=== PATIENT | female | born 1945 | race Caucasian/White ===

== ENCOUNTER 2018-05-25 12:53 | Observation (INO) | payer MEDICARE, OTHER ==
[2018-05-25 13:12] LABS: BASOPHILS % (AUTO) 0.7 %; EOSINOPHILS # (AUTO) 0.1 10^3/uL (0.0-0.7); EOSINOPHILS % (AUTO) 2.3 %; HGB - HEMOGLOBIN 12.5 g/dL (12.0-16.0); LYMPHOCYTES # (AUTO) 2.3 10^3/uL (1.5-3.5); LYMPHOCYTES % (AUTO) 37.5 %; MEAN CORPUSCULAR HEMOGLOBIN 32.8 pg (27.0-31.0); MEAN CORPUSCULAR HGB CONC 33.5 g/dL (32.0-36.0); MEAN CORPUSCULAR VOLUME 97.9 fL (81.0-99.0); MEAN PLATELET VOLUME 9.1 fL (7.9-10.8); MONOCYTES # (AUTO) 0.5 10^3/uL (0.0-1.0); MONOCYTES % (AUTO) 8.8 %; NEUTROPHILS # (AUTO) 3.1 10^3/uL (1.5-6.6); NEUTROPHILS % (AUTO) 50.7 %; PLT - PLATELET COUNT 237 10^3/uL (130-450); RED BLOOD COUNT 3.82 10^6/uL (4.20-5.40); RED CELL DISTRIBUTION WIDTH 13.3 % (12.0-15.0); WHITE BLOOD COUNT 6.2 x10^3/uL (4.8-10.8)
[2018-05-25] MEDS ORDERED: ONDANSETRON 4 MG/2 ML VIAL IVP STA (13:12)
[2018-05-25] MEDS ORDERED: SODIUM CHLORIDE 0.9% 1,000 ML IV ONE (13:12)
[2018-05-25 13:25] LABS: ALBUMIN/GLOBULIN RATIO 1.1 (1.0-2.2); BILIRUBIN,TOTAL 1.5 mg/dL (0.2-1.0); CALCIUM 9.6 mg/dL (8.5-10.3); CREATININE 1.2 mg/dL (0.4-1.0); MAGNESIUM 1.8 mg/dL (1.7-2.8); TOTAL PROTEIN 7.5 g/dL (6.7-8.2)
--- NOTE | 2018-05-25 13:26 | ED Physician Documentation ---
History of Present Illness - Stated complaint Stated Complaint: SYNCOPE - Chief complaint Chief Complaint: Neuro - History obtained from History obtained from: Patient - Additonal information Additional information: 72-year-old female was brought to the emergency department after a syncopal episode which occurred today just prior to arrival. The patient was A passenger and began to feel dizzy and nauseous. The patient has been pulled over and the patient began to vomit and her dizziness became worse. The patient then opened the door to the car and had a syncopal episode and struck her head upon falling to the ground. Currently, the patient reports feeling very dizzy and nauseous. The patient denies chest pain, palpitations, recent dyspnea on exertion or focal neurologic changes. No specific triggering factors. No relieving factors. Symptoms are described as moderate. No other associated symptoms. Review of Systems Constitutional: reports: Fatigue. denies: Fever, Chills Eyes: denies: Loss of vision Ears: denies: Ear pain Nose: denies: Congestion Cardiac: denies: Chest pain / pressure, Palpitations Respiratory: denies: Dyspnea GI: reports: Nausea, Vomiting. denies: Abdominal Pain : denies: Dysuria Skin: denies: Rash Musculoskeletal: denies: Neck pain Neurologic: reports: Generalized weakness, Syncope, Head injury. denies: Focal weakness, Numbness, Difficulty speaking, Seizure, Confused, Altered mental status, Unresponsive Immunocompromised: denies: Chemotherapy PD PAST MEDICAL HISTORY - Present Medications Home Medications: Ambulatory Orders Medication Instructions Recorded Confirmed Levothyroxine Sodium [Tirosint] 50 mcg PO QDAC 05/25/18 05/25/18 - Allergies Allergies/Adverse Reactions: Allergies Allergy/AdvReac Type Severity Reaction Status Date / Time hydrocodone Allergy Unknown Verified 05/25/18 13:04 Penicillins Allergy Unknown Verified 05/25/18 13:05 PD ED PE NORMAL - General General: Alert and oriented X 3, No acute distress - HEENT HEENT: Atraumatic, PERRL, EOMI, Ears normal - Neck Neck: Supple, no meningeal sign - Cardiac Cardiac: RRR - Respiratory Respiratory: No respiratory distress, Clear bilaterally - Abdomen Abdomen: Normal bowel sounds, Non tender - Derm Derm: Normal color, No rash - Extremities Extremities: No deformity, Normal ROM s pain - Neuro Neuro: Alert and oriented X 3, tank pumper panelboard 2-12 intact, No motor deficit, No sensory deficit, Normal speech Eye Opening: Spontaneous Motor: Obeys Commands Verbal: Oriented GCS Score: 15 - Psych Psych: Normal mood Results - Vitals Vitals: Vital Signs - 24 hr 05/25/18 05/25/18 05/25/18 12:58 13:54 15:51 Temperature 35.6 C L 36.0 C L Heart Rate 63 58 L 58 L Respiratory 6 L 6 L 11 L Rate Blood Pressure 110/54 L 120/65 154/78 H O2 Saturation 0 L 97 100 Oxygen O2 Source Room air - EKG (time done) 13: 01 Rate: Rate (enter#) Rhythm: NSR Intervals: Normal [place], QRS normal Ischemia: Normal ST segments Compare to prior EKG: Old EKG unavailable - Labs Labs: Laboratory Tests 05/25/18 05/25/18 05/25/18 13:04 13:04 13:04 WBC 6.2 RBC 3.82 L Hgb 12.5 Hct 37.4 MCV 97.9 MCH 32.8 H MCHC 33.5 RDW 13.3 Plt Count 237 MPV 9.1 Neut # (Auto) 3.1 Lymph # (Auto) 2.3 Alcorn # (Auto) 0.5 Eos # (Auto) 0.1 Baso # (Auto) 0.0 Absolute Nucleated RBC 0.00 Nucleated RBC % 0.1 Sodium 137 Potassium 3.6 Chloride 103 Carbon Dioxide 25 Anion Gap 9.0 BUN 20 Creatinine 1.2 H Estimated GFR (MDRD) 44 L Glucose 116 H Calcium 9.6 Magnesium 1.8 Total Bilirubin 1.5 H AST 25 ALT 18 Alkaline Phosphatase 61 Troponin I < 0.04 B-Natriuretic Peptide Total Protein 7.5 Albumin 4.0 Globulin 3.5 Albumin/Globulin Ratio 1.1 Lipase 53 H Urine Color Urine Clarity Urine pH Ur Specific [place] Urine Protein Urine Glucose (UA) Urine Ketones Urine Occult Blood Urine Nitrite Urine Bilirubin Urine Urobilinogen Ur Leukocyte Esterase Urine RBC Urine WBC Ur Squamous Epith Cells Amorphous Sediment Urine Bacteria Ur Microscopic Review Urine Culture Comments 05/25/18 05/25/18 13:04 16:30 WBC RBC Hgb Hct MCV MCH MCHC RDW Plt Count MPV Neut # (Auto) Lymph # (Auto) Alcorn # (Auto) Eos # (Auto) Baso # (Auto) Absolute Nucleated RBC Nucleated RBC % Sodium Potassium Chloride Carbon Dioxide Anion Gap BUN Creatinine Estimated GFR (MDRD) Glucose Calcium Magnesium Total Bilirubin AST ALT Alkaline Phosphatase Troponin I B-Natriuretic Peptide 19 Total Protein Albumin Globulin Albumin/Globulin Ratio Lipase Urine Color YELLOW Urine Clarity SL. CLOUDY Urine pH 6.0 Ur Specific [place] 1.010 Urine Protein NEGATIVE Urine Glucose (UA) NEGATIVE Urine Ketones NEGATIVE Urine Occult Blood SMALL H Urine Nitrite NEGATIVE Urine Bilirubin NEGATIVE Urine Urobilinogen 0.2 (NORMAL) Ur Leukocyte Esterase NEGATIVE Urine RBC 0-5 Urine WBC 0-3 Ur Squamous Epith Cells RARE Squamous Amorphous Sediment Moderate Urine Bacteria Rare Ur Microscopic Review INDICATED Urine Culture Comments NOT INDICATED PD MEDICAL DECISION MAKING - ED course ED course: The patient will require admission to the hospital for further workup of her syncopal episode. The findings and plan were discussed with the patient and family who understand and agree to the plan. The case was discussed with the hospitalist who accepts the patient onto her service - Sepsis Event Vital Signs: Vital Signs - 24 hr 05/25/18 05/25/18 05/25/18 12:58 13:54 15:51 Temperature 35.6 C L 36.0 C L Heart Rate 63 58 L 58 L Respiratory 6 L 6 L 11 L Rate Blood Pressure 110/54 L 120/65 154/78 H O2 Saturation 0 L 97 100 Oxygen O2 Source Room air Departure - Departure Disposition: ED Place in Observation Clinical Impression: Renal insufficiency, mild Syncope Qualifiers: Syncope type: unspecified Qualified Code(s): R55 - Syncope and collapse Closed head injury Qualifiers: Encounter type: initial encounter Qualified Code(s): S09.90XA - Unspecified injury of head, initial encounter Condition: Good Discharge Date/Time: 05/25/18 18:02
--- NOTE | 2018-05-25 14:53 | CT Report ---
Procedure Date: 05/25/2018 Accession Number: [id number] / [id number] Procedure: CT - Head W/O CPT Code: FULL RESULT: EXAM: CT HEAD EXAM DATE: 05/25/2018 02:23 PM. CLINICAL HISTORY: Head injury after a syncopal episode. COMPARISON: None. TECHNIQUE: Multiaxial CT images were obtained from the foramen magnum to the vertex. Reformats: Coronal. IV contrast: None. In accordance with CT protocol optimization, one or more of the following dose reduction techniques were utilized for this exam: automated exposure control, adjustment of mA and/or KV based on patient size, or use of iterative reconstructive technique. FINDINGS: Parenchyma: No intraparenchymal hemorrhage. No evidence of mass, midline shift, or CT findings of acute infarction. Gleason-white differentiation is distinct. Diffuse chronic microangiopathic white matter changes are evident. Extraaxial Spaces: Normal for age. No subdural or epidural collections identified. Ventricles: The ventricles and cortical sulci are enlarged, consistent with age-related tissue loss. Sinuses and orbits: Imaged paranasal sinuses, orbits, and mastoids show no significant abnormality. Bones: No evidence of fracture or calvarial defect. Other: None. IMPRESSION: Generalized age-related cortical atrophic changes without evidence of acute intracranial abnormality. RADIA
--- NOTE | 2018-05-25 15:04 | XRAY Report ---
Procedure Date: 05/25/2018 Accession Number: [id number] / [id number] Procedure: XR - Chest 2 View X-Ray CPT Code: 71722 FULL RESULT: EXAM: CHEST RADIOGRAPHY. EXAM DATE: 05/25/2018 02:30 PM. CLINICAL HISTORY: Chest pain. COMPARISON: None. TECHNIQUE: 2 views. FINDINGS: Lungs/Pleura: No focal opacities evident. No pleural effusion. No pneumothorax. Normal volumes. Mediastinum: Heart and mediastinal contours are unremarkable. Other: Cervical spine fusion. IMPRESSION: Normal 2-view chest radiography. RADIA
[2018-05-25 16:34] LABS: BILIRUBIN,URINE NEGATIVE (NEGATIVE); CLARITY,URINE SL. CLOUDY (CLEAR); GLUCOSE, URINE (UA) NEGATIVE (NEGATIVE); KETONES,URINE (UA) NEGATIVE (NEGATIVE); LEUKOCYTE ESTERASE, URINE NEGATIVE (NEGATIVE); NITRITE,URINE NEGATIVE (NEGATIVE); OCCULT BLOOD,URINE SMALL (NEGATIVE); PROTEIN,URINE NEGATIVE (NEGATIVE); UROBILINOGEN,URINE 0.2 (NORMAL) E.U./dL (NORMAL)
[2018-05-25] MEDS ORDERED: SODIUM CHLORIDE FLUSH 0.9% 10 ML SYRINGE IVP PRN (16:42)
[2018-05-25] MEDS ORDERED: ACETAMINOPHEN 325 MG TABLET PO PRN (16:42)
[2018-05-25] MEDS ORDERED: PROCHLORPERAZINE 10 MG/2 ML VIAL IVP PRN (16:42)
[2018-05-25 16:48] LABS: AMORPHOUS SEDIMENT,UR Moderate /LPF; BACTERIA,URINE Rare /HPF (None Seen); RBC,URINE 0-5 /HPF (0-5); SQUAMOUS EPITHELIAL CELL,UR RARE Squamous (<= Few)
[2018-05-25] MEDS ORDERED: SODIUM CHLORIDE 0.9% 1,000 ML IV SCH (17:00)
[2018-05-25] MEDS: SODIUM CHLORIDE FLUSH 0.9% 10 ML SYRINGE IVP SCH (17:57)
[2018-05-25] MEDS ORDERED: LEVOTHYROXINE SODIUM 50 MCG PO SCH (21:00)
--- NOTE | 2018-05-25 22:11 | CT Report ---
Procedure Date: 05/25/2018 Accession Number: [id number] / [id number] Procedure: CT - Abdomen/Pelvis W/O CPT Code: FULL RESULT: EXAM: CT ABDOMEN AND PELVIS EXAM DATE: 05/25/2018 08:14 PM. CLINICAL HISTORY: Constipation. Nausea and vomiting. History of diverticulitis. COMPARISONS: None. TECHNIQUE: Routine helical CT imaging was performed through the abdomen and pelvis. IV contrast: None. Enteric contrast: No. Reconstructions: Coronal and sagittal. In accordance with CT protocol optimization, one or more of the following dose reduction techniques were utilized for this exam: automated exposure control, adjustment of mA and/or KV based on patient size, or use of iterative reconstructive technique. FINDINGS: Lung Bases: No focal consolidation seen. Small hiatal hernia. Liver: No focal lesion identified on this noncontrast examination. Gallbladder/Bile Ducts: Small calcified stones in the gallbladder. No evidence of cholecystitis. Spleen: Normal. Pancreas: Normal. Adrenal Glands: Normal. Kidneys: Small bilateral cysts. No masses or hydronephrosis. Peritoneal Cavity/Bowel: Colonic diverticula. No obvious diverticulitis. No bowel obstruction seen. No free air or free fluid. No lymphadenopathy. Appendix appears normal. Pelvic Organs: Uterus is not seen. Visualized pelvic organs are otherwise unremarkable. Vasculature: Mild atherosclerosis. No aortic aneurysm. Bones: Osteopenia. Other: None. IMPRESSION: 1. There are some colonic diverticula but no obvious diverticulitis. 2. No bowel obstruction. No large stool burden. 3. Appendix appears normal. 4. Small calcified stones in the gallbladder. No evidence of cholecystitis. 5. Small hiatal hernia. RADIA
--- NOTE | 2018-05-26 02:42 | Ultrasound Report ---
Procedure Date: 05/26/2018 Accession Number: [id number] / [id number] Procedure: US - Carotid Doppler Complete CPT Code: FULL RESULT: EXAM: BILATERAL CAROTID AND VERTEBRAL ARTERY DUPLEX DOPPLER ULTRASOUND: EXAM DATE: 05/25/2018 11:58 PM CLINICAL HISTORY: Syncope. COMPARISON: None. TECHNIQUE: Grayscale imaging, color Doppler, and duplex spectral Doppler were used to evaluate the carotid and vertebral arteries bilaterally. Static images were obtained. FINDINGS: Bilateral plaquing in the carotid bifurcations and internal carotid arteries, left greater than right. Mildly elevated velocity in the distal left internal carotid artery, probably related to tortuosity rather than stenosis. Normal antegrade flow is present in bilateral vertebral arteries. VELOCITIES (cm/sec): Right: RCCA Prox: PSV 51.9 cm/sec. RCCA Dist: PSV 73.6 cm/sec, EDV 23.8 cm/sec. RECA: PSV 102 cm/sec. R Bulb: PSV 81.1 cm/sec, EDV 18.9 cm/sec, ICA/CCA ratio 1.1. MANI Prox: PSV 115.1 cm/sec, EDV 37.1 cm/sec, ICA/CCA ratio 1.6. MANI Mid: PSV 115.1 cm/sec, EDV 32.5 cm/sec, ICA/CCA ratio 1.6. MANI Dist: PSV 117.5 cm/sec, EDV 40.2 cm/sec, ICA/CCA ratio 1.6. RVA: PSV 47.5 cm/sec. RVA flow direction: Antegrade. Left: LCCA Prox: PSV 75.2 cm/sec. LCCA Dist: PSV 61.1 cm/sec, EDV 13.5 cm/sec. LECA: PSV 68.7 cm/sec. L Bulb: PSV 69.2 cm/sec, EDV 24.3 cm/sec, ICA/CCA ratio 1.1. LICA Prox: PSV 92.5 cm/sec, EDV 26.5 cm/sec, ICA/CCA ratio 1.02. LICA Mid: PSV 97.7 cm/sec, EDV 32.7 cm/sec, ICA/CCA ratio 1.6. LICA Dist: PSV 131.0 cm/sec, EDV 42.0 cm/sec, ICA/CCA ratio 2.1. LVA: PSV 29.4 cm/sec. LVA flow direction: Antegrade. ICA diameter stenosis: Right: <50% by velocity and <70% by NASCET criteria. Left: <50% by velocity and <70% by NASCET criteria. IMPRESSION: 1. Bilateral carotid artery plaquing. 2. In the right carotid artery there are no elevated carotid artery velocities to suggest hemodynamically significant stenosis. 3. Mildly elevated velocity in the distal left internal carotid artery probably related to tortuosity rather than stenosis. Otherwise no abnormally elevated velocities on the left. 4. Normal antegrade flow is present in bilateral vertebral arteries. General Recommendations: Stenosis =50% ICA - Follow-up ultrasound 6-12 months Stenosis <50% ICA - High Risk Patient with plaque - Follow-up ultrasound 1-2 years Normal Study but High Risk Patient - Follow-up ultrasound 3-5 years Management recommendations and diagnostic criteria are based on current IAC endorsed standards in Carotid Artery Stenosis: Grayscale and Doppler Ultrasound Diagnosis. Validated velocity measurements with angiographic measurements and velocity criteria are extrapolated from diameter data as defined by the Society of Radiologists in Ultrasound Consensus Conference Radiology 2003; 229;340-346. RADIA
[2018-05-26] MEDS: SODIUM CHLORIDE FLUSH 0.9% 10 ML SYRINGE IVP SCH ×2 (04:47→10:22)
[2018-05-26 04:53] LABS: BASOPHILS % (AUTO) 0.3 %; EOSINOPHILS # (AUTO) 0.1 10^3/uL (0.0-0.7); EOSINOPHILS % (AUTO) 1.6 %; HGB - HEMOGLOBIN 10.9 g/dL (12.0-16.0); LYMPHOCYTES # (AUTO) 2.1 10^3/uL (1.5-3.5); LYMPHOCYTES % (AUTO) 31.1 %; MEAN CORPUSCULAR HEMOGLOBIN 33.1 pg (27.0-31.0); MEAN CORPUSCULAR HGB CONC 33.3 g/dL (32.0-36.0); MEAN CORPUSCULAR VOLUME 99.3 fL (81.0-99.0); MEAN PLATELET VOLUME 9.2 fL (7.9-10.8); MONOCYTES # (AUTO) 0.7 10^3/uL (0.0-1.0); NEUTROPHILS # (AUTO) 3.8 10^3/uL (1.5-6.6); PLT - PLATELET COUNT 204 10^3/uL (130-450); RED CELL DISTRIBUTION WIDTH 13.1 % (12.0-15.0); WHITE BLOOD COUNT 6.7 x10^3/uL (4.8-10.8)
[2018-05-26 05:07] LABS: ALBUMIN 3.4 g/dL (3.2-5.5); BILIRUBIN,DIRECT 0.1 mg/dL (0.1-0.5); BILIRUBIN,TOTAL 1.3 mg/dL (0.2-1.0); CALCIUM 8.6 mg/dL (8.5-10.3); TOTAL PROTEIN 6.5 g/dL (6.7-8.2)
[2018-05-26] MEDS ORDERED: POLYETHYLENE GLYCOL 3350 17 GM PACKET PO SCH (09:00)
[2018-05-26] MEDS ORDERED: FAMOTIDINE 20 MG TABLET PO SCH (09:00)
--- NOTE | 2018-05-26 15:11 | Discharge Plan ---
Discharge Plan Disposition: Home, Self Care Condition: Stable Diet: Regular Activity Restrictions: Activity as Tolerated Shower Restrictions: No Driving Restrictions: Yes (No driving until cleared by PCP) Instruction Topics: Dehydration, Dehydration Rehydration Ch, ED Dehydration Prevent Ch Additional Instructions or Follow Up instructions: You were admitted after a fainting spell and underwent testing to rule out severe causes, such as a heart attack or heart failure, a recurrence of diverticulitis or electrolyte abnormalities. We found that you were dehydrated, but there could still be another factor. Therefore, you may NOT drive a vehicle until you are cleared to drive by your Primary Care Provider. That doctor may want you to have more tests before OKing driving, such as a Holter monitor, a Tilt Table Test or an EEG. Please see your doctor back in your home town as soon as you can. Copies of your head CT scan, carotid Doppler, abdomen CT scan and Echo reports are attached, and you should bring them to your doctor' s appointment. Stay hydrated. Drink juices, broth, water and have jello or sport's drinks. No Smoking: If you smoke, Please STOP! Call for help.
[2018-05-26 15:46] VITALS: BP 123/66
--- NOTE | 2018-05-26 20:31 | HISTORY & PHYSICAL EXAMINATION ---
DATE OF SERVICE: 05/25/2018 Physician: Dennise Zheng MD HISTORY OF PRESENT ILLNESS: This is a 72-year-old white female who is visiting here with her from [place] and she has never been at this hospital. She has a history of hypothyroidism on treatment and prior frequent exacerbations of diverticulitis and prior frequent syncope. Patient states that she has syncopal episodes starting 3-4 years ago when she started to have bouts of diverticulitis that were difficult to manage as no antibiotics could be found to adequately treat the exacerbations of diverticulitis. Her last treatment was approximately 6 months ago and this management, antibiotic (which she cannot remember) cured her symptoms and she also stopped having syncope. Regarding the syncope, she has been seen by a dosier operator and had a Holter monitor, but has never had a stress test, echo or tilt-table test. She claims that she also had an EEG and that this was normal. She was told that she has mild chronic renal insufficiency and 6 months ago was told to stop taking her Pepcid or any Protonix in order to see if this improves her kidneys. She does not remember what her creatinine level was. The patient has been on vacation, camping and was leaving today, was in the passenger seat of a truck, her was driving, when she noticed her typical onset of syncope with a prodrome of feeling hot in her neck and face, tunnel vision and she stated to her that another fainting spell was coming. He was able to wool puller the car. She opened the car door and was able to get out of the car and started putting her head towards the front passenger seat when she did have a full syncope and fell backward onto the asphalt. Her was able to come around, there was no different symptom than her other syncopal episodes such as any tremor or seizures or incontinence. She did awake quickly , but states that she was very tired and too weak to even raise her head, which is not the typical syncopal sequence for her. The and a passerby helped put her supine in the back seat and she stated that this did not help and therefore she requested that he bring her to the emergency room. She can remember the entire episode as she is describing it here. In the emergency room, there were no further episodes of syncope. There was mild nausea prior to the syncope and in the car and in the emergency room, which has resolved with an antiemetic iv dose given in the ER. The patient claims there has been no recent fever, no cough or URI or other sign of an infection. She claims she normally hydrates herself well and was even told to push fluids in general. She has had a normal diet, denies any diarrhea or melena. She has been compliant with her medication, which is only a thyroid medication. In the ER she had a head CT which showed no trauma or bleed. PAST MEDICAL HISTORY: Hypothyroidism on replacement, prior diverticulitis, prior syncopal episodes that are related to her diverticulitis, but no diagnosis for syncope was ever officially made, she claims. SOCIAL HISTORY: The patient is a nonsmoker who never smoked, she is retired, she lives with her . They are here on vacation. The patient drinks no alcohol, uses no illicit drugs. ALLERGIES: HYDROCODONE AND PENICILLIN. MEDICATIONS: Synthroid 50 mcg daily. FAMILY HISTORY: No inherited diseases. REVIEW OF SYSTEMS: A comprehensive review of systems was performed and the pertinent positives are in the HPI, the rest are negative. PHYSICAL EXAMINATION GENERAL: White female who is in no distress. VITAL SIGNS: Blood pressure 110/54, pulse of 63 in sinus rhythm, afebrile, room air saturation 97%. One set of orthostatic vital signs had been done and is normal. However, she has started to receive IV fluids. HEENT: Unremarkable. Oral mucosa is moist. NECK: Without JVD or carotid bruits. CHEST: Clear. HEART: Heart sounds normal. No audible murmur. No RV heave. No gallop. ABDOMEN: Soft, normal bowel sounds, nontender. No organomegaly. EXTREMITIES: Without clubbing, cyanosis, or edema. NEUROLOGIC: Intact. LABORATORY DATA: Normal electrolytes. Normal BUN, but creatinine is 1.2. Normal liver tests. Normal bilirubin. Troponin not detectable. Lipase of 53. White blood count 6.2, hemoglobin 12.5, normal platelet count. No INR was done. A urinalysis showed small occult blood, negative leukocyte esterase and negative nitrites, and rare bacteria were seen. Chest x-ray: no active disease. Head CT: age-related atrophy but no acute changes. EKG: NSR, LAFB, poor R wave progression, no old EKG available for comparison. IMPRESSION/DIAGNOSES 1. Syncope with a prodrome. 2. Acute kidney failure. 3. Hypothyroidism, on treatment. PLAN: Place patient in observation on telemetry. Cycle troponins. Obtain a resting Echo to rule out structural cardiac causes for syncope. Obtain a carotid Doppler to rule out vascular insufficiency and hypoperfusion. Begin IV hydration at a significant rate and assess creatinine again after hydration. Continue to follow orthostatic vital signs. Obtain an abdomen and pelvis CT to determine if there could be any early signs of an acute diverticulitis, which was usually related to her syncopal spells in the past 3 years. Continue with regular diet. CODE STATUS: FULL CODE. DEEP VENOUS THROMBOSIS PROPHYLAXIS: SCDs. ATTESTATION: The patient is expected to be discharged or transferred to another facility within 96 hours: Yes. TD: 05/26/2018 17:59 HILARY
--- NOTE | 2018-05-27 06:56 | DISCHARGE SUMMARY ---
Physician: Dennise Zheng MD DATE OF ADMISSION: 05/25/2018 DATE OF DISCHARGE: 05/26/2018 HISTORY OF PRESENT ILLNESS: This is a 72-year-old white female with a history of hypothyroidism on replacement, prior diverticulitis, prior frequent syncopal episodes, usually related to her diverticulitis exacerbations, with a negative workup for other etiologies such as cardiac or neurologic for the syncope. The patient was on vacation on [facility], had completed her camping trip and was checking out; and while being a passenger in a vehicle, she had a warning of her typical onset of syncope. The then pulled over, she got out of the car and had syncope, falling backward onto the asphalt, and was slow to awaken and felt more weak than her usual recovery from syncope. Because of this, she wanted to be seen in the emergency room and was placed in Observation status for 24 hours to evaluate for causes of syncope. HOSPITAL COURSE AND DISCHARGE DIAGNOSES 1. Syncope. The patient's creatinine was elevated at 1.2, but other blood tests were normal. It was suspected that she had dehydration, which led to the syncopal episode. She was hydrated with saline for several hours and a followup creatinine the next morning was normal at 1.0. The patient had orthostatic vital signs done throughout the course and these were normal. The patient had a head CT done in the emergency room, which showed age-related atrophy, but no acute findings. She also had carotid Dopplers that showed mild plaque bilaterally, but no significant stenoses. A resting Echo was done that was within normal limits. Her troponins were negative x3. An EKG showed sinus rhythm and quality assurance monitor final showed no pathologic arrhythmias while she was here. Because her prior episodes of syncope were somehow related to diverticulitis attacks, per the patient, she underwent a CT of the abdomen and pelvis to rule out early diverticulitis. This did show diverticulosis, but no acute diverticulitis. It was felt the patient had dehydration, given the abnormal creatinine, which may have added to this event of syncope. She was advised to push fluids including broth, juices , Jell-O, sports drinks and water. The patient was advised not to drive a car until she is cleared by her PCP after returning to her hometown. Further testing may include a Holter monitor, a tilt table test, a stress test, consultation by a Miter Saw Operator and a Neurologist, a repeat EEG and orthostatic vital sign checks. She may need compression stockings or be on other management for repeat syncopal episodes. 2. Acute kidney failure. The patient was told to stop taking Protonix six months ago because of potential early kidney disease. We had no prior creatinine for comparison. Her creatinine of 1.2 normalized to 1.0 after overnight hydration with normal saline. The patient was advised to have followup with her PCP after returning home. 3. Hypothyroidism. The patient's Synthroid was continued while here. LABORATORY AND IMAGING: Reviewed and summarized above (The patient was also given copies of all of her imaging tests to take back to her hometown and show her PCP). STATUS AT DISCHARGE: Stable. PHYSICAL EXAMINATION AT DISCHARGE VITAL SIGNS: Blood pressure 142/73, heart rate 87, afebrile, room air saturation 99%. HEENT: Unremarkable. NECK: Without JVD or carotid bruits. CHEST: Clear. HEART: Heart sounds normal. ABDOMEN: Benign. EXTREMITIES: Without edema. NEUROLOGIC: Intact. CODE STATUS: FULL CODE. FOLLOWUP: Follow up with her PCP as soon as she arrives in [place], [place]. cc: Dr. Verna Bacon, [place], [place] TD: 05/26/2018 18:04 HILARY
== END 2018-05-26 17:10 | disposition home or self-care (01) ==
LOC: ED 12:53 → MS3 16:42
PROVIDERS: ADMIT Internal Medicine; ATTEND Internal Medicine
DX: R55 Syncope and collapse (principal); E86.0 Dehydration; R11.2 Nausea with vomiting, unspecified; R53.1 Weakness; V48.4XXA Person boarding or alighting a car injured in noncollision transport accident, initial encounter; Y92.838 Other recreation area as the place of occurrence of the external cause; K57.30 Diverticulosis of large intestine without perforation or abscess without bleeding; N17.9 Acute kidney failure, unspecified; N18.2 Chronic kidney disease, stage 2 (mild); E03.9 Hypothyroidism, unspecified; Z79.899 Other long term (current) drug therapy; Z87.19 Personal history of other diseases of the digestive system
CPT/HCPCS: 36415; 70450; 71046; 74176; 80048; 80053; 80076; 81001; 83690; 83735; 83880; 84484; 85025; 93005; 93306; 93880; 96361; 96374; 99284; A9270; G0378; 81003; 87086